=== PATIENT | female | born 1985 | race Caucasian/White ===

== ENCOUNTER 2017-04-26 05:47 | Inpatient (IN) ==
[2017-04-26] MEDS ORDERED: ONDANSETRON 4 MG/2 ML VIAL IV PRN (05:56)
[2017-04-26] MEDS ORDERED: BUTORPHANOL 2 MG/ML VIAL IV PRN (05:56)
[2017-04-26] MEDS ORDERED: MEPERIDINE 50 MG/1 ML VIAL IM PRN (05:56)
[2017-04-26] MEDS ORDERED: OXYTOCIN/LR 20 UNIT/1,000 ML BAG IV SCH (06:00)
[2017-04-26] MEDS: LACTATED RINGERS 1,000 ML IV SCH ×2 (06:15→15:45)
[2017-04-26 06:31] LABS: Basophils % 0.4 % (0.0-0.8); Eosinophils # 0.2 10*3/uL (0.0-0.87); Eosinophils % 2.2 % (0.00-10.9); Hematocrit 35.9 VOL% (35.7-47.0); Hemoglobin 12.3 GM/DL (12.0-16.0); Immature Granulocytes % 0.4 %; Immature Granulocytes Absolute 0.04 #; Lymphocytes # 1.6 10*3/uL (1.4-4.0); Lymphocytes % 17.3 % (21.3-54.2); Mean Corpuscular HGB Conc 34.3 GM/DL (32-36); Mean Corpuscular Hemoglobin 30 PG (27-34); Mean Corpuscular Volume 86.9 FL (87-102); Mean Platelet Volume 9.9 FL (9.6-12.0); Monocytes # 0.9 10*3/uL (0.11-0.8); Monocytes % 9.5 % (1.7-12.7); Neutrophils # 6.5 10*3/uL (1.4-7.4); Neutrophils % 70.2 % (38.7-73.9); Platelet Count 250 T/CUMM (130-400); Red Blood Count 4.13 MC/CUMM (3.8-5.5); Red Cell Distribution Width 14.2 % (9.3-17.3); White Blood Count 9.3 T/CUMM (4-12)
[2017-04-26 06:46] LABS: INR 0.9; PT Patient Result 9.9 SECS; Partial Thromboplastin Time 27.4 SECS (0-40)
[2017-04-26] MEDS ORDERED: AMPICILLIN INJ 1,000 MG in SODIUM CHLORIDE 0.9% 50 ML IV SCH (07:00)
[2017-04-26 07:07] LABS: Alanine Aminotransferase 14 U/L (13-56); Albumin 2.4 G/DL (3.4-5.0); Alkaline Phosphatase 134 U/L (45-117); Aspartate Amino Transferase 17 U/L (0-37); Bilirubin,Total < 0.39 MG/DL (0.2-1.0); Blood Urea Nitrogen 5 MG/DL (7-18); Calcium 8.7 MG/DL (8.5-10.1); Glucose 84 MG/DL (74-106); Osmolality,Calculated 276.3 MOS/KG (273-304); Potassium 3.6 MMOL/L (3.5-5.1); Sodium 141 MMOL/L (136-145); Total Protein 5.7 G/DL (6.4-8.3); Uric Acid 3.1 MG/DL (2.6-6.0)
[2017-04-26] MEDS ORDERED: AMPICILLIN INJ 2,000 MG in SODIUM CHLORIDE 0.9% 100 ML IV ONE (07:30)
[2017-04-26] MEDS ORDERED: diphenhydrAMINE 50 MG/1 ML VIAL IV PRN ×2 (10:11)
[2017-04-26] MEDS ORDERED: PROMETHAZINE 25 MG/1 ML VIAL IM ONE (10:11)
[2017-04-26] MEDS ORDERED: hydrOXYzine HCL 25 MG/1 ML VIAL IM PRN (10:11)
[2017-04-26] MEDS ORDERED: FAMOTIDINE 20 MG/2 ML VIAL IV ONE (10:11)
[2017-04-26] MEDS ORDERED: ePHEDrine 50 MG/ML AMP IV PRN (10:11)
[2017-04-26] MEDS ORDERED: fentaNYL 2 MCG/ROPIV 0.2% EPID 150 ML EPIDURAL SCH (10:11)
[2017-04-26] MEDS ORDERED: LACTATED RINGERS 1,000 ML IV ONE (10:11)
[2017-04-26] MEDS ORDERED: CITRIC ACID/SODIUM CITRATE 30 ML UDCUP PO ONE (10:11)
[2017-04-26] MEDS: AMPICILLIN INJ 1,000 MG in SODIUM CHLORIDE 0.9% 50 ML IV SCH ×2 (10:57→15:43)
[2017-04-26 13:24] LABS: Apearance,Urine CLEAR (Clear); Bacteria,Urine Occasional /HPF (Few); Bilirubin,Urine Negative (Negative); Blood, Urine Small mg/dL (Negative); Glucose,Urine (UA) Negative (Negative); Ketones,Urine 20 mg/dL (Negative); Mucus,Urine Occasional /LPF (Occasional); Nitrite,Urine Negative (Negative); Protein,Urine Negative; RBC,Urine 1 /HPF (0-4); Squamous Epithelial Cell,Urine Occasional /HPF (0-10); Urine Color Yellow (Yellow); Urine Specific Gravity 1.013 (1.001-1.035); Urine Urobilinogen < 2.0 EU/DL (0.2-1.0); WBC,Urine <1 /HPF (0-6)
[2017-04-26] MEDS ORDERED: miSOPROStol 200 MCG TABLET ONE (20:37)
[2017-04-26] MEDS ORDERED: LIDOCAINE 1% 50 ML VIAL ONE (20:37)
[2017-04-26] MEDS ORDERED: BENZOCAINE 20%/MENTHOL 0.5% SPRAY 56 GM CAN TOP PRN (21:49)
[2017-04-26] MEDS ORDERED: WITCH HAZEL PADS 100/JAR TOP PRN (21:49)
[2017-04-26] MEDS ORDERED: HYDROCORTISONE 2.5% RECTAL CREAM 30 GM TUBE TOP PRN (21:49)
[2017-04-26] MEDS ORDERED: LANOLIN 50% CREAM 0.3 OZ TUBE TOP PRN (21:49)
[2017-04-26] MEDS ORDERED: IBUPROFEN 600 MG TABLET PO PRN (21:49)
[2017-04-26] MEDS ORDERED: BISACODYL 10 MG SUPP RECTAL PRN (21:49)
[2017-04-26] MEDS ORDERED: DIPH/TET/ACEL PERT BOOSTER VACCINE 0.5 ML VIAL IM ONE (21:49)
[2017-04-26] MEDS ORDERED: ACETAMINOPHEN 325 MG TABLET PO PRN (21:49)
[2017-04-26] MEDS ORDERED: ACETAMINOPHEN/CODEINE 300-30 MG TABLET PO PRN (21:54)
[2017-04-27] MEDS ORDERED: IBUPROFEN 800 MG TABLET ONE (00:28)
[2017-04-27] MEDS: IBUPROFEN 800 MG TABLET PO PRN ×2 (00:38→21:10)
[2017-04-27] MEDS ORDERED: METHYLDOPA 250 MG TABLET ONE (08:06)
[2017-04-27 10:01] LABS: Basophils # 0.1 10*3/uL (0.0-0.2); Basophils % 0.3 % (0.0-0.8); Eosinophils # 0.3 10*3/uL (0.0-0.87); Eosinophils % 1.6 % (0.00-10.9); Hematocrit 33.8 VOL% (35.7-47.0); Hemoglobin 11.4 GM/DL (12.0-16.0); Immature Granulocytes % 1.2 %; Immature Granulocytes Absolute 0.22 #; Lymphocytes # 2.2 10*3/uL (1.4-4.0); Lymphocytes % 11.8 % (21.3-54.2); Mean Corpuscular HGB Conc 33.7 GM/DL (32-36); Mean Corpuscular Hemoglobin 30 PG (27-34); Mean Corpuscular Volume 88.3 FL (87-102); Mean Platelet Volume 10.1 FL (9.6-12.0); Monocytes # 1.4 10*3/uL (0.11-0.8); Monocytes % 7.9 % (1.7-12.7); Neutrophils # 14.1 10*3/uL (1.4-7.4); Neutrophils % 77.2 % (38.7-73.9); Platelet Count 255 T/CUMM (130-400); Red Blood Count 3.83 MC/CUMM (3.8-5.5); Red Cell Distribution Width 14.1 % (9.3-17.3); White Blood Count 18.2 T/CUMM (4-12)
[2017-04-27] MEDS: MULTIVITAMIN (PRENATAL) TABLET PO SCH (11:41)
[2017-04-27] MEDS: DOCUSATE SODIUM 100 MG CAPSULE PO SCH ×2 (11:41→21:10)
[2017-04-28 07:38] VITALS: BP 159/80
[2017-04-28] MEDS ORDERED: DIPH/TET/ACEL PERT BOOSTER VACCINE 0.5 ML VIAL IM ONE (09:02)
[2017-04-28] MEDS: MULTIVITAMIN (PRENATAL) TABLET PO SCH (09:49)
[2017-04-28] MEDS: DOCUSATE SODIUM 100 MG CAPSULE PO SCH (09:49)
== END 2017-04-28 12:55 | disposition home or self-care (01) | DRG 775 ==
LOC: N.LD 05:47 → N.NUOP 05:47 → N.LD 05:50 → OBSVTOIN 09:36 → N.OB 04-27 01:00
PROVIDERS: ADMIT Obstetrics & Gynecology; ATTEND Obstetrics & Gynecology

== ENCOUNTER 2019-01-09 09:07 | Inpatient (IN) ==
[2019-01-09] MEDS ORDERED: LACTATED RINGERS 250 ML IV ONE (09:34)
[2019-01-09] MEDS ORDERED: MEPERIDINE 50 MG/1 ML VIAL IM PRN (09:34)
[2019-01-09] MEDS ORDERED: BUTORPHANOL 2 MG/ML VIAL IV PRN (09:34)
[2019-01-09] MEDS: LACTATED RINGERS 1,000 ML IV SCH ×2 (10:15→17:24)
[2019-01-09 10:28] LABS: Basophils # 0.1 10*3/uL (0.0-0.2); Basophils % 0.5 % (0.0-0.8); Eosinophils # 0.3 10*3/uL (0.0-0.87); Eosinophils % 2.7 % (0.00-10.9); Hematocrit 41.9 VOL% (35.7-47.0); Hemoglobin 13.7 GM/DL (12.0-16.0); Immature Granulocytes % 0.4 %; Immature Granulocytes Absolute 0.04 #; Lymphocytes # 1.9 10*3/uL (1.4-4.0); Lymphocytes % 21.2 % (21.3-54.2); Mean Corpuscular HGB Conc 32.7 GM/DL (32-36); Mean Corpuscular Volume 89.3 FL (87-102); Mean Platelet Volume 9.7 FL (9.6-12.0); Monocytes % 8.5 % (1.7-12.7); Neutrophils % 66.7 % (38.7-73.9); Platelet Count 256 T/CUMM (130-400); Red Blood Count 4.69 MC/CUMM (3.8-5.5); Red Cell Distribution Width 13.2 % (9.3-17.3); White Blood Count 9.1 T/CUMM (4-12)
[2019-01-09] MEDS ORDERED: MIDAZOLAM 2 MG/2 ML VIAL IV ONE (10:38)
[2019-01-09 10:40] LABS: INR 0.9; PT Patient Result 9.9 SECS; Partial Thromboplastin Time 25.1 SECS (0-40)
[2019-01-09] MEDS: ONDANSETRON 4 MG/2 ML VIAL IV PRN ×3 (10:53→20:16)
[2019-01-09] MEDS ORDERED: MEPERIDINE 50 MG/1 ML VIAL IV ONE (10:57)
[2019-01-09 11:01] LABS: Alanine Aminotransferase 16 U/L (13-56); Albumin 3.6 G/DL (3.4-5.0); Alkaline Phosphatase 49 U/L (45-117); Aspartate Amino Transferase 27 U/L (0-37); Bilirubin,Total < 0.39 MG/DL (0.2-1.0); Blood Urea Nitrogen 6 MG/DL (7-18); Calcium 9.2 MG/DL (8.5-10.1); Glucose 95 MG/DL (74-106); Osmolality,Calculated 278.3 MOS/KG (273-304); Total Protein 7.2 G/DL (6.4-8.3)
[2019-01-09] MEDS: miSOPROStol 200 MCG TABLET PO SCH ×3 (11:08→19:05)
[2019-01-09] MEDS ORDERED: MEPERIDINE 50 MG/1 ML VIAL IV PRN (19:34)
[2019-01-09] MEDS ORDERED: OXYTOCIN/LR 20 UNIT/1,000 ML BAG IV PRN (19:57)
[2019-01-09] MEDS ORDERED: MEPERIDINE 50 MG/1 ML VIAL IV SCH (22:00)
[2019-01-09] MEDS ORDERED: ZALEPLON 5 MG CAPSULE PO ONE (22:47)
[2019-01-09] MEDS: IBUPROFEN 800 MG TABLET PO SCH (23:13)
[2019-01-10 03:55] VITALS: BP 125/59
[2019-01-10 06:14] LABS: Basophils % 0.5 % (0.0-0.8); Eosinophils # 0.4 10*3/uL (0.0-0.87); Eosinophils % 4.9 % (0.00-10.9); Hemoglobin 12.1 GM/DL (12.0-16.0); Immature Granulocytes % 0.3 %; Immature Granulocytes Absolute 0.02 #; Lymphocytes # 2.1 10*3/uL (1.4-4.0); Lymphocytes % 26.3 % (21.3-54.2); Mean Corpuscular HGB Conc 32.7 GM/DL (32-36); Mean Corpuscular Volume 89.6 FL (87-102); Mean Platelet Volume 9.5 FL (9.6-12.0); Monocytes % 9.5 % (1.7-12.7); Neutrophils % 58.5 % (38.7-73.9); Platelet Count 217 T/CUMM (130-400); Red Blood Count 4.13 MC/CUMM (3.8-5.5); Red Cell Distribution Width 13.3 % (9.3-17.3); White Blood Count 7.9 T/CUMM (4-12)
[2019-01-10] MEDS: IBUPROFEN 800 MG TABLET PO SCH (07:30)
== END 2019-01-10 08:15 | disposition home or self-care (01) | DRG 770 ==
LOC: N.LDOUT 09:07 → N.LD 09:08 → N.LDOUT 09:25 → N.LD 09:26
PROVIDERS: ADMIT Obstetrics & Gynecology; ATTEND Obstetrics & Gynecology

== ENCOUNTER 2020-07-22 08:59 | Inpatient (IN) ==
[2020-07-22] MEDS: BETAMETH SODIUM PHOS/ACETATE 30 MG/5 ML VIAL IM SCH (11:34)
[2020-07-22] MEDS: LACTATED RINGERS 1,000 ML IV SCH ×2 (11:34→15:30)
[2020-07-22] MEDS ORDERED: DEXTROSE 50% 25 GM/50 ML VIAL IV PRN (11:37)
[2020-07-22] MEDS ORDERED: GLUCAGON 1 MG VIAL IM PRN (11:37)
[2020-07-22 20:08] LABS: Protein/Creatinine Ratio,Urine 0.2 RATIO
[2020-07-22] MEDS: LABETALOL 100 MG TABLET PO SCH (21:08)
[2020-07-23] MEDS: LACTATED RINGERS 1,000 ML IV SCH (00:27)
[2020-07-23] MEDS: LABETALOL 100 MG TABLET PO SCH ×2 (08:58→21:03)
[2020-07-23] MEDS: BETAMETH SODIUM PHOS/ACETATE 30 MG/5 ML VIAL IM SCH (09:02)
[2020-07-23] MEDS ORDERED: MEPERIDINE 50 MG/1 ML VIAL IV PRN (09:11)
[2020-07-23] MEDS ORDERED: ACETAMINOPHEN 325 MG TABLET PO PRN (09:11)
[2020-07-23 09:37] LABS: Basophils % 0.1 % (0.0-0.8); Eosinophils % 0.2 % (0.00-10.9); Hematocrit 35.7 VOL% (35.7-47.0); Hemoglobin 11.7 GM/DL (12.0-16.0); Immature Granulocytes % 0.7 %; Immature Granulocytes Absolute 0.09 #; Lymphocytes # 1.9 10*3/uL (1.4-4.0); Lymphocytes % 15.4 % (21.3-54.2); Mean Corpuscular HGB Conc 32.8 GM/DL (32-36); Mean Corpuscular Volume 89.5 FL (87-102); Mean Platelet Volume 10.2 FL (9.6-12.0); Monocytes % 6.5 % (1.7-12.7); Neutrophils % 77.1 % (38.7-73.9); Platelet Count 248 T/CUMM (130-400); Red Blood Count 3.99 MC/CUMM (3.8-5.5); Red Cell Distribution Width 13.8 % (9.3-17.3); White Blood Count 12.4 T/CUMM (4-12)
[2020-07-23 09:51] LABS: INR 0.9; Partial Thromboplastin Time 25.1 SECS (23.9-33.8)
[2020-07-23 10:03] LABS: Alanine Aminotransferase 15 U/L (13-56); Albumin 2.4 G/DL (3.4-5.0); Alkaline Phosphatase 124 U/L (45-117); Aspartate Amino Transferase 12 U/L (0-37); Bilirubin,Total < 0.39 MG/DL (0.2-1.0); Blood Urea Nitrogen 5 MG/DL (7-18); Carbon Dioxide 22 MMOL/L (21-32); Estimated Glom Filtration Rate 135 ML/MIN; Glucose 129 MG/DL (74-106); Osmolality,Calculated 273.7 MOS/KG (273-304); Potassium 3.6 MMOL/L (3.5-5.1); Sodium 138 MMOL/L (136-145); Total Protein 6.3 G/DL (6.4-8.3); Uric Acid 3.1 MG/DL (2.6-6.0)
[2020-07-23] MEDS ORDERED: ZALEPLON 5 MG CAPSULE PO PRN (19:00)
[2020-07-24] MEDS: BUTORPHANOL 2 MG/ML VIAL IV PRN ×3 (07:45→20:16)
[2020-07-24] MEDS ORDERED: AMPICILLIN INJ 2,000 MG in SODIUM CHLORIDE 0.9% 100 ML IV ONE (08:30)
[2020-07-24] MEDS ORDERED: AMPICILLIN 2,000 MG VIAL ONE (08:35)
[2020-07-24] MEDS: LABETALOL 100 MG TABLET PO SCH (10:46)
[2020-07-24] MEDS: AMPICILLIN INJ 1,000 MG in SODIUM CHLORIDE 0.9% 100 ML IV SCH ×3 (12:10→20:28)
[2020-07-24] MEDS: ONDANSETRON 4 MG/2 ML VIAL IV PRN ×2 (14:28→20:09)
[2020-07-24] MEDS: ASPIRIN EC 81 MG TABLET PO SCH (18:27)
[2020-07-24] MEDS: BETAMETH SODIUM PHOS/ACETATE 30 MG/5 ML VIAL IM SCH ×2 (18:29→18:30)
[2020-07-24] MEDS: LACTATED RINGERS 1,000 ML IV SCH ×4 (19:46→23:15)
[2020-07-24] MEDS ORDERED: LACTATED RINGERS 1,000 ML IV ONE (20:46)
[2020-07-24] MEDS ORDERED: FAMOTIDINE 20 MG/2 ML VIAL IV ONE (20:46)
[2020-07-24] MEDS ORDERED: hydrOXYzine HCL 25 MG/1 ML VIAL IM PRN (20:46)
[2020-07-24] MEDS ORDERED: PROMETHAZINE 25 MG/1 ML VIAL IM ONE (20:46)
[2020-07-24] MEDS ORDERED: NALOXONE 0.4 MG/ML VIAL IV PRN (20:46)
[2020-07-24] MEDS ORDERED: CITRIC ACID/SODIUM CITRATE 30 ML UDCUP PO ONE (20:46)
[2020-07-24] MEDS ORDERED: diphenhydrAMINE 50 MG/1 ML VIAL IV PRN ×2 (20:46)
[2020-07-24] MEDS ORDERED: ePHEDrine 50 MG/ML VIAL IV PRN (20:46)
[2020-07-24] MEDS: fentaNYL 2 MCG/ROPIV 0.2% EPID 100 ML EPIDURAL SCH (21:24)
[2020-07-24] MEDS: LABETALOL 200 MG TABLET PO SCH (21:36)
[2020-07-24 23:20] LABS: Bilirubin,Urine Negative (Negative); Blood, Urine Small mg/dL (Negative); Glucose,Urine (UA) Negative (Negative); Ketones,Urine Negative (Negative); Nitrite,Urine Negative (Negative); Protein,Urine Negative; RBC,Urine 1 /HPF (0-4); Squamous Epithelial Cell,Urine Occasional /HPF (0-10); Urine Appearance CLEAR (Clear); Urine Color Straw (Yellow); Urine Specific Gravity 1.006 (1.001-1.035); Urine Urobilinogen < 2.0 EU/DL (0.2-1.0); WBC,Urine <1 /HPF (0-6)
[2020-07-25] MEDS: AMPICILLIN INJ 1,000 MG in SODIUM CHLORIDE 0.9% 100 ML IV SCH ×4 (00:24→12:48)
[2020-07-25] MEDS ORDERED: OXYTOCIN/LR 20 UNIT/1,000 ML BAG IV SCH (03:00)
[2020-07-25] MEDS: fentaNYL 2 MCG/ROPIV 0.2% EPID 100 ML EPIDURAL SCH (05:01)
[2020-07-25] MEDS: ONDANSETRON 4 MG/2 ML VIAL IV PRN (05:39)
[2020-07-25] MEDS: LACTATED RINGERS 1,000 ML IV SCH (08:36)
[2020-07-25] MEDS ORDERED: OXYTOCIN/LR 20 UNIT/1,000 ML BAG IV ONE ×2 (08:57→14:10)
[2020-07-25] MEDS ORDERED: TRANEXAMIC ACID 1,000 MG/10 ML VIAL ONE (08:57)
[2020-07-25] MEDS ORDERED: miSOPROStoL 200 MCG TABLET ONE (08:57)
[2020-07-25] MEDS ORDERED: CARBOPROST TROMETHAMINE 250 MCG/ML AMP IM ONE (08:58)
[2020-07-25] MEDS ORDERED: fentaNYL 2 MCG/ROPIV 0.2% EPID 100 ML EPIDURAL ONE (11:30)
[2020-07-25] MEDS ORDERED: TERBUTALINE 1 MG/1 ML VIAL ONE (13:23)
[2020-07-25] MEDS ORDERED: TERBUTALINE 1 MG/1 ML VIAL SUBCUT ONE (13:30)
[2020-07-25] MEDS ORDERED: METHYLERGONOVINE 0.2 MG/1 ML AMP ONE (13:42)
[2020-07-25] MEDS ORDERED: fentaNYL 100 MCG/2 ML VIAL ONE (13:53)
[2020-07-25 13:55] LABS: Cord Arterial Blood HCO3 21.2 MMOL/L
[2020-07-25 13:58] LABS: Cord Venous Blood HCO3 22.9 MMOL/L; Cord Venous Blood PCO2 52.7 MMHG; Cord Venous Blood PO2 28.2
[2020-07-25] MEDS ORDERED: RHO(D) IMMUNE GLOBULIN 300 MCG SYRINGE IM ONE (14:10)
[2020-07-25] MEDS ORDERED: ONDANSETRON 4 MG/2 ML VIAL IV PRN (14:10)
[2020-07-25] MEDS ORDERED: SIMETHICONE CHEW 80 MG TABLET PO PRN (14:10)
[2020-07-25] MEDS ORDERED: MAGNESIUM HYDROXIDE SUSP 30 ML UDCUP PO PRN (14:10)
[2020-07-25] MEDS ORDERED: ACETAMINOPHEN 325 MG TABLET PO PRN (14:10)
[2020-07-25] MEDS ORDERED: IBUPROFEN 800 MG TABLET PO PRN (14:10)
[2020-07-25] MEDS ORDERED: ONDANSETRON 4 MG/2 ML VIAL ONE ×2 (14:19)
[2020-07-25] MEDS ORDERED: BUPIVACAINE MPF 0.5% /EPI 30 ML VIAL ONE (14:19)
[2020-07-25] MEDS ORDERED: LACTATED RINGERS 1,000 ML IV SCH (14:30)
[2020-07-25] MEDS ORDERED: ceFAZolin 1,000 MG in SYRINGE 1 EACH IV SCH (14:30)
[2020-07-25] MEDS ORDERED: ACETAMINOPHEN INJ 1,000 MG in PREMIX 1 EACH IV ONE ×2 (18:00→18:30)
[2020-07-25] MEDS: KETOROLAC 30 MG/1 ML VIAL IV PRN (18:17)
[2020-07-25] MEDS: ceFAZolin 2,000 MG in PREMIX 1 EACH IV SCH (20:47)
[2020-07-25] MEDS: LABETALOL 200 MG TABLET PO SCH (20:50)
[2020-07-25] MEDS: DOCUSATE SODIUM 100 MG CAPSULE PO SCH (22:01)
[2020-07-25] MEDS: oxyCODONE/ACETAMINOPHEN 5-325 MG TABLET PO PRN (22:05)
[2020-07-25 22:14] LABS: Basophils # 0.1 10*3/uL (0.0-0.2); Basophils % 0.3 % (0.0-0.8); Eosinophils # 0.2 10*3/uL (0.0-0.87); Eosinophils % 1.3 % (0.00-10.9); Hematocrit 33.8 VOL% (35.7-47.0); Hemoglobin 10.7 GM/DL (12.0-16.0); Immature Granulocytes % 0.8 %; Immature Granulocytes Absolute 0.12 #; Lymphocytes % 12.6 % (21.3-54.2); Mean Corpuscular HGB Conc 31.7 GM/DL (32-36); Mean Corpuscular Volume 91.1 FL (87-102); Mean Platelet Volume 10.3 FL (9.6-12.0); Monocytes % 8.5 % (1.7-12.7); Neutrophils % 76.5 % (38.7-73.9); Platelet Count 227 T/CUMM (130-400); Red Blood Count 3.71 MC/CUMM (3.8-5.5); Red Cell Distribution Width 13.8 % (9.3-17.3); White Blood Count 15.5 T/CUMM (4-12)
[2020-07-26] MEDS: KETOROLAC 30 MG/1 ML VIAL IV PRN ×2 (00:02→06:10)
[2020-07-26] MEDS: ACETAMINOPHEN 500 MG TABLET PO SCH ×3 (00:09→11:21)
[2020-07-26] MEDS: ceFAZolin 2,000 MG in PREMIX 1 EACH IV SCH (04:10)
[2020-07-26 05:35] LABS: Basophils # 0.1 10*3/uL (0.0-0.2); Basophils % 0.3 % (0.0-0.8); Eosinophils # 0.3 10*3/uL (0.0-0.87); Eosinophils % 2.3 % (0.00-10.9); Hematocrit 36.3 VOL% (35.7-47.0); Hemoglobin 11.7 GM/DL (12.0-16.0); Immature Granulocytes % 0.5 %; Immature Granulocytes Absolute 0.08 #; Lymphocytes # 2.4 10*3/uL (1.4-4.0); Lymphocytes % 16.6 % (21.3-54.2); Mean Corpuscular HGB Conc 32.2 GM/DL (32-36); Mean Corpuscular Volume 89.6 FL (87-102); Mean Platelet Volume 10.3 FL (9.6-12.0); Monocytes % 9.5 % (1.7-12.7); Neutrophils % 70.8 % (38.7-73.9); Platelet Count 274 T/CUMM (130-400); Red Blood Count 4.05 MC/CUMM (3.8-5.5); Red Cell Distribution Width 13.9 % (9.3-17.3); White Blood Count 14.6 T/CUMM (4-12)
[2020-07-26] MEDS: LABETALOL 200 MG TABLET PO SCH ×2 (09:17→20:52)
[2020-07-26] MEDS: ASPIRIN EC 81 MG TABLET PO SCH (09:17)
[2020-07-26] MEDS: MULTIVITAMIN (PRENATAL) TABLET PO SCH (09:18)
[2020-07-26] MEDS: DOCUSATE SODIUM 100 MG CAPSULE PO SCH ×2 (09:18→20:52)
[2020-07-26] MEDS: KETOROLAC 30 MG/1 ML VIAL IV SCH ×2 (11:21→17:48)
[2020-07-27] MEDS: oxyCODONE/ACETAMINOPHEN 5-325 MG TABLET PO PRN ×4 (03:16→22:28)
[2020-07-27] MEDS: IBUPROFEN 800 MG TABLET PO PRN ×3 (06:23→19:47)
[2020-07-27] MEDS: DOCUSATE SODIUM 100 MG CAPSULE PO SCH ×2 (08:20→21:40)
[2020-07-27] MEDS: LABETALOL 200 MG TABLET PO SCH ×3 (08:20→19:59)
[2020-07-27] MEDS: ASPIRIN EC 81 MG TABLET PO SCH (08:20)
[2020-07-27] MEDS: MULTIVITAMIN (PRENATAL) TABLET PO SCH (08:20)
[2020-07-27] MEDS ORDERED: FUROSEMIDE 20 MG TABLET PO ONE (10:06)
[2020-07-28] MEDS: IBUPROFEN 800 MG TABLET PO PRN ×2 (03:25→08:59)
[2020-07-28] MEDS: oxyCODONE/ACETAMINOPHEN 5-325 MG TABLET PO PRN (06:09)
[2020-07-28] MEDS: ASPIRIN EC 81 MG TABLET PO SCH (07:37)
[2020-07-28] MEDS: LABETALOL 200 MG TABLET PO SCH (07:37)
[2020-07-28] MEDS: MULTIVITAMIN (PRENATAL) TABLET PO SCH (07:37)
[2020-07-28] MEDS: DOCUSATE SODIUM 100 MG CAPSULE PO SCH (07:37)
[2020-07-28 07:53] VITALS: BP 141/72
== END 2020-07-28 10:20 | disposition home or self-care (01) | DRG 786 ==
LOC: N.LDOUT 08:59 → N.LD 09:00 → N.OB 07-25 17:16
PROVIDERS: ADMIT Obstetrics & Gynecology; ATTEND Obstetrics & Gynecology
PROC: LDCSECT (ICD-10-PCS; 2020-07-25 13:30)